=== PATIENT | female | born 1970 | race American Indian/Alaskan Native ===

== ENCOUNTER 2016-03-02 18:23 | Inpatient (IN) | payer OTHER, BC ==
--- NOTE | 2016-03-02 19:05 | Emergency Department Report ---
Chief Complaint: Chest Pain Stated Complaint: LT HAND INJURY/ELEVATED BP Time Seen by Provider: 03/02/16 18:58 - HPI History of Present Illness: Patient is a 45-year-old female who presents to ED complaining of left-sided, dull aching type pressure type pain, 7 out of 10 in intensity, nonradiating left -sided chest pain times this morning. Patient states this morning she started experiencing this chest pain that has gotten progressively worse. 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 Patient states mild throbbing in her left hand. Full range of motion and no pain with movement. Patient denies fevers/chills/nausea/shocks of breath/abdominal pain/headaches/ dizziness/any other problems. - ROS Review of Systems: As noted in HPI - Exam Vital Signs: Vital Signs 03/02/16 18:33 Temperature 98.4 F Pulse Rate 100 H Respiratory 18 Rate Blood Pressure 216/122 O2 Sat by Pulse 100 Oximetry Physical Exam: GENERAL: Alert and oriented x3, no apparent distress, Normal Gait, atraumatic. LUNGS: Symetrical with respiration, No wheezing, no rales or crackles, CTAB. HEART: S1, S2 present, regular rate and rhythm without murmur, no rubs, no gallops. ABDOMEN: No organomegaly was noted,Positive bowel sounds, soft, and non- distended. . Nontender to palpation on all Quadrants, NO CVA tenderness. EXTREMITIES/MUSCULOSKELETAL: No cyanosis, clubbing, rash, lesions or edema. Full ROM bilaterally. UE/LE Pulses 2+ bilaterally. LE and UE 5+ strength bilaterally SKIN: Warm and dry, No lesions, No ulceration or induration present. MSE screening note: Focused history and physical exam performed. Due to findings the following was ordered: ED Medical Decision Making - EKG Data EKG shows normal: sinus rhythm Rate: normal - EKG Data Interpretation: other (possible left atrial enlargement, LVH, nonspecific T- wave abnormality) - Medical Decision Making 45-year-old female who presents with chest pain. EKG completed. Labs ordered. Patient's vital signs stable. Pulse rate 100 Patient is in no respiratory or acute distress. Patient waiting to see ED physician. ED Disposition for MSE Condition: Stable
[2016-03-02 19:45] LABS: Blood Urea Nitrogen 8 mg/dL (7-17); Calcium 8.8 mg/dL (8.4-10.2); Carbon Dioxide 25 mmol/L (22-30); Glucose 156 mg/dL (65-100)
[2016-03-02 19:46] LABS: Anion Gap 18 mmol/L; Chloride 99.7 mmol/L (98-107); Potassium 3.9 mmol/L (3.6-5.0); Sodium 139 mmol/L (137-145)
[2016-03-02 19:58] LABS: Basophils % (Auto) 0.7 % (0.0-1.8); Eosinophils % (Auto) 3.2 % (0.0-4.3); Hemoglobin 11.9 gm/dl (10.1-14.3); Mean Corpuscular HGB Conc 33 % (30-34); Mean Corpuscular Hemoglobin 29 pg (28-32); Mean Corpuscular Volume 89 fl (79-97); Platelet Count 235 K/mm3 (140-440); Red Blood Count 4.06 M/mm3 (3.65-5.03); Red Cell Distribution Width 13.3 % (13.2-15.2); White Blood Count 7.4 K/mm3 (4.5-11.0)
[2016-03-02] MEDS ORDERED: CATAPRES PO ONE (21:04)
[2016-03-02] MEDS ORDERED: NITRO-BID 2% TP ONE (21:04)
[2016-03-02] MEDS ORDERED: MORPHINE IV ONE (21:04)
[2016-03-02] MEDS ORDERED: ASPIRIN PO ONE (21:04)
[2016-03-02] MEDS ORDERED: ZOFRAN IV ONE (21:04)
--- NOTE | 2016-03-02 21:48 | Emergency Department Report ---
HPI - General Chief Complaint: Chest Pain Time Seen by Provider: 03/02/16 20:33 - HPI HPI: Room 22 The patient is a 45-year-old female presenting with a chief complaint chest pain. She was originally sent to the hospital for evaluation of her left hand after he patient fell on it injury noted. The patient acknowledged her in triage that she has had substernal chest pain since this morning. Patient describes the pain as dull and sharp in nature. Patient states the pain is been intermittent and sometimes associated with shortness of breath and diaphoresis. Patient denies nausea or vomiting. Patient states she had a normal chemical stress test in 2014 but has never had a cardiac catheterization. The patient currently gives her chest pain a score of 7/10. The patient complains of pain in the left hand along the dorsum and thumb Location: [see above] Duration: [see above] Quality: [see above] Severity: 7/10 Modifying factors: Unknown Context: [see above] Mode of transportation: [not driving] ED Past Medical Hx - Past Medical History Hx Hypertension: Yes Hx Diabetes: Yes (borderline) - Surgical History Additional Surgical History: RIGHT SHOULDER SURGERY - Family History Family history: no significant - Social History Smoking Status: Never Smoker Substance Use Type: Alcohol (occasional) - Medications Home Medications: Home Medications Medication Instructions Recorded Confirmed Last Taken Type Gabapentin [Neurontin] 600 mg PO Q8H 06/05/15 03/02/16 Unknown History Lisinopril [Zestril TAB] 40 mg PO QDAY #30 tablet 06/05/15 03/02/16 Unknown Rx Aspirin [Aspirin TAB] 81 mg PO QDAY 03/02/16 03/02/16 Unknown History ED Review of Systems ROS: Stated complaint: LT HAND INJURY/ELEVATED BP Other details as noted in HPI Comment: All other systems reviewed and negative Constitutional: diaphoresis Eyes: denies: eye pain, eye discharge, vision change ENT: denies: ear pain, throat pain Respiratory: shortness of breath. denies: cough, wheezing Cardiovascular: chest pain Endocrine: no symptoms reported Gastrointestinal: denies: abdominal pain, nausea, diarrhea Genitourinary: denies: urgency, dysuria, discharge Musculoskeletal: arthralgia, myalgia. denies: back pain, joint swelling Skin: denies: rash, lesions Neurological: denies: headache, weakness, paresthesias Psychiatric: denies: anxiety, depression Hematological/Lymphatic: denies: easy bleeding, easy bruising Physical Exam - Physical Exam Vital Signs: Vital Signs 03/02/16 03/02/16 03/02/16 18:33 20:06 20:30 Temperature 98.4 F Pulse Rate 100 H 90 Respiratory 18 26 H 18 Rate Blood Pressure 216/122 Blood Pressure [Left] O2 Sat by Pulse 100 100 Oximetry 03/02/16 03/02/16 03/02/16 20:34 21:28 21:29 Temperature Pulse Rate 89 90 90 Respiratory 18 Rate Blood Pressure 204/108 204/108 Blood Pressure 204/108 [Left] O2 Sat by Pulse 100 Oximetry Physical Exam: GENERAL: The patient is well-developed well-nourished female lying on stretcher not appearing to be in acute distress. [] HEENT: Normocephalic. Atraumatic. Extraocular motions are intact. Patient has moist mucous membranes. NECK: Supple. Trachea midline CHEST/LUNGS: Clear to auscultation. There is no respiratory distress noted. HEART/CARDIOVASCULAR: Regular. There is no tachycardia. There is no gallop rub or murmur. ABDOMEN: Abdomen is soft, nontender. Patient has normal bowel sounds. There is no abdominal distention. SKIN: There is no rash. There is no edema. There is no diaphoresis. NEURO: The patient is awake, alert, and oriented. The patient is cooperative. The patient has normal speech MUSCULOSKELETAL: There is tenderness to palpation of the left anatomical snuffbox. There are no obvious deformities of the left hand visualized. There is no evidence of acute injury. ED Course Vital Signs 03/02/16 03/02/16 03/02/16 18:33 20:06 20:30 Temperature 98.4 F Pulse Rate 100 H 90 Respiratory 18 26 H 18 Rate Blood Pressure 216/122 Blood Pressure [Left] O2 Sat by Pulse 100 100 Oximetry 03/02/16 03/02/16 03/02/16 20:34 21:28 21:29 Temperature Pulse Rate 89 90 90 Respiratory 18 Rate Blood Pressure 204/108 204/108 Blood Pressure 204/108 [Left] O2 Sat by Pulse 100 Oximetry ED Medical Decision Making - Lab Data Result diagrams: 03/02/16 19:03 03/02/16 19:03 Laboratory Tests 03/02/16 03/02/16 19:03 19:03 WBC 7.4 RBC 4.06 Hgb 11.9 Hct 36.0 MCV 89 MCH 29 MCHC 33 RDW 13.3 Plt Count 235 Lymph % (Auto) 33.8 [place] % (Auto) 7.3 Eos % (Auto) 3.2 Baso % (Auto) 0.7 Lymph # 2.5 [place] # 0.5 Eos # 0.2 Baso # 0.0 Seg Neutrophils % 55.0 Seg Neutrophils # 4.1 Sodium 139 Potassium 3.9 Chloride 99.7 Carbon Dioxide 25 Anion Gap 18 BUN 8 Creatinine 0.5 L Estimated GFR > 60 BUN/Creatinine Ratio 16.00 Glucose 156 H Calcium 8.8 Troponin T < 0.010 - EKG Data -: EKG Interpreted by Me EKG shows normal: sinus rhythm Rate: normal - EKG Data When compared to previous EKG there are: previous EKG unavailable Interpretation: other (no ischemic changes seen) - Radiology Data Radiology results: image reviewed (chest x-ray, left hand x-ray) interpreted by me: Chest x-ray-no focal infiltrates, no pneumothorax Left hand x-ray-no acute fractures - Differential Diagnosis ACS, scaphoid fracture, pericarditis, GERD Critical care attestation.: If time is entered above; I have spent that time in minutes in the direct care of this critically ill patient, excluding procedure time. ED Disposition Clinical Impression: Chest pain, Left hand pain, Uncontrolled hypertension Disposition: OP ADMITTED IP TO THIS HOSP Is pt being admited?: Yes Does the pt Need Aspirin: Yes Condition: Fair Instructions: Chest Pain (ED), Hypertension (ED) Time of Disposition: 22:01 (hospitalist paged)
--- NOTE | 2016-03-02 22:24 | Admit Criteria Form ---
Admission Criteria Documentation: CHEST PAIN Clinical Indications for Admission to Inpatient Care (Place 'X' for any and all applicable criteria): Admission is indicated for chest pain and ANY ONE of the following(1)(2)(3)(4)(5 ): [ ]I. Angina with acute coronary syndrome (Also use Myocardial Infarction or Angina guideline) [ ]II. Hemodynamic instability [ ]III. Angina needing acute intervention as indicated by ALL of the following( 11)(12): [ ]a) Unstable angina is present as indicated by angina that is ANY ONE of the following: [ ]i) New onset [ ]ii) Nocturnal [ ]iii) Prolonged at rest [ ]iv) Progressive [ ]b) Angina warrants acute intervention as indicated by ANY ONE of the following: [ ]i) Recurrent angina (e.g, not responding as previously to treatment) [ ]ii) Angina at rest or with low-level activities despite initial medical therapy [ ]iii) New or presumably new ST-segment depression on ECG [ ]iv) Signs or symptoms of heart failure (eg, dyspnea, pulmonary edema) [ ]v) New or worsening mitral regurgitation [ ]vi) Hemodynamic instability [ ]vii) Dangerous arrhythmia (eg, sustained ventricular tachycardia) [ ]viii) History of percutaneous coronary intervention within 6 months [ ]ix) History of coronary artery bypass graft surgery [ ]x) KEM risk score of 2 or greater[A] [ ]xi) History of Diabetes(14) [ ]xii) High-risk cardiac ischemia findings on noninvasive testing (e.g, echocardiogram, treadmill testing, nuclear scan) [ ]xiii) Chronic renal insufficiency (ie, estimated GFR less than 60 mL/min/1.732m) [ ]xiv) Left ventricular ejection fraction less than 40% [ ]IV. Evidence of RI (eg, cardiac biomarkers positive, ST-segment elevation on ECG) also use Myocardial Infarction Criteria Form. [ ]V. Pulmonary edema [ ]. Respiratory distress [ ]VII. Chest pain indicative of serious diagnosis other than coronary artery disease (eg, aortic dissection) [ ]VIII. Contraindications and/or Inappropriate clinical situations for Observational Care in patients with Chest Pain, when ANY ONE of the following is required: [ ]a) Patient with risk factor for pulmonary embolism, acute coronary syndrome and myocardial infarction (18) [ ]b) Patient with Pulmonary embolism require an average LOS of 4.3 days, therefore emergency department observation management is inappropriate 18,23 [ ]c) Painful condition/s in the elderly, have the highest rate of recidivism after emergency department observation management (10.8%) 20,21,22 [ ]d) Elevated cardiac biomarker requires intensive and exhaustive care (19) [X ]IX. General contraindications and/or Inappropriate clinical situations for Observational Care in patients with Chest Pain, when ANY ONE of the following is required: [ ]a) Prediction of prolongation of LOS based on ANY ONE of the following may be considered as a contraindication for observational care 2, 3, 4, 5, 6, 7, 8, 9, 10, 11 [ ]i) Age > 65 yrs. [ ]ii) Patient arriving by ambulance [ ]iii) Patient with high acuity [ ]iv) Patient requiring vital sign monitoring [ ]v) Patient on IV medication [ X]b) Systolic blood pressures 180mmHg 3,12 [ ]c) Patient with altered mental status including delirium and other alteration of consciousness, (3) [ ]d) Patient whose discharge disposition will be to a penitentiary home or rehabilitation home should not be managed in Emergency Department Observation Unit. CMS rule requires 3 days hospital stay before such placement. 3,13 [ ]e) Patient with failure to thrive due to broad array of etiologies 3,16,17 [ ]f) Inability to ambulate 3,14 Extended stay beyond goal length of stay may be needed for (1)(28): [ ]a) Specific condition diagnosed after evaluation (eg, pulmonary embolism, aortic dissection) [ ]b) Unstable angina [ ]c) Continued suspicion of acute coronary syndrome with inability to complete needed cardiac evaluation (eg, patient clinically unable to undergo stress testing) [ ]d) Myocardial infarction (Contents from ANGINA and CHEST PAIN clinical indications for admission to inpatient care have been integrated in this form) The original [facility] content created by [employer] has been revised. The portions of the content which have been revised are identified through the use of italic text or in bold, and [facility] [employer] has neither reviewed nor approved the modified material. All other unmodified content is copyright [facility] [employer]. Please see references footnoted in the original [facility] edition 2016 Admission Criteria Met: Yes
[2016-03-02] MEDS ORDERED: APRESOLINE IV PRN (22:29)
--- NOTE | 2016-03-02 22:43 | History and Physical Report ---
History of Present Illness Date of examination: 03/02/16 History of present illness: 45-year-old woman with a history of hypertension, diabetes, hyperlipidemia comes emergency room for evaluation of the left hand. Hypertension states she was change in the patient in the [employer] where she works, the patient rolled onto her hand and since then she has been having increasing pain. Pain is along the base of the first digit and including the snuff box. She also complaining of chest pain, located in the left chest which she described as a dull heavy pain, intermittent in nature lasting for less than 1 minute, intensity [place], no radiation and she cannot identify exacerbating or relieving factors. Denies nausea vomiting, diaphoresis and palpitation, admits to mild shortness of breath. Patient had a stress test in 2016 which was negative. She has not taken antihypertensives in 1 month Patient denies cough, abdominal pain, hematochezia, dysuria, frequency, focal weakness, dysarthria, fever chills, polydipsia polyuria, hot or cold intolerance , easy bruisability, or rash or bleeding from mucosal membrane, rhinorrhea, epistaxis, earache, tinnitus, blurry vision, eye discharge, anxiety, depression. Other review of systems negative PAST SURGICAL HISTORY: Right shoulder SOCIAL HISTORY: Denies alcohol, tobacco, drugs FAMILY HISTORY: Hypertension Medications and Allergies Allergies Allergy/AdvReac Type Severity Reaction Status Date / Time penicillin Allergy Rash Verified 06/05/15 08:23 Home Medications Medication Instructions Recorded Confirmed Last Taken Type Gabapentin [Neurontin] 600 mg PO Q8H 06/05/15 03/02/16 Unknown History Lisinopril [Zestril TAB] 40 mg PO QDAY #30 tablet 06/05/15 03/02/16 Unknown Rx Aspirin [Aspirin TAB] 81 mg PO QDAY 03/02/16 03/02/16 Unknown History amLODIPine [Norvasc] 10 mg PO DAILY 03/02/16 03/02/16 1 Day Ago History 10 Active Meds: Active Medications Hydralazine HCl (Apresoline) 5 mg IV Q6HR PRN PRN Reason: Hypertension Exam - Physical Exam Narrative exam: Gen. appearance: Patient lying in bed, no apparent distress HEENT: Normocephalic, atraumatic, pupils equally round and reactive to light, extraocular movement intact, and no sclericterus,. No JVD or thyromegaly or nodule,neck supple, no carotid bruit ,mucous membranes moist, no exudate or erythema Heart: S1, S2, regular rate and rhythm Lungs: Clear to auscultation bilaterally, breathing comfortable Abdomen: Positive bowel sounds, nontender, nondistended, no organomegaly Extremity: No edema, cyanosis, clubbing Skin: No rash, nodules, warm, dry Neuro: Oriented 3, cranial nerves II-12 intact, speech is fluent, motor and sensory intact - Constitutional Vitals: Temp Pulse Resp BP Pulse Ox 98.4 F 90 18 204/108 100 03/02/16 18:33 03/02/16 21:29 03/02/16 20:34 03/02/16 21:29 03/02/16 20:34 Results - Labs CBC & Chem 7: 03/02/16 19:03 03/02/16 19:03 Labs: Abnormal lab results 03/02/16 Range/Units 19:03 Creatinine 0.5 L (0.7-1.2) mg/dL Glucose 156 H (65-100) mg/dL - Imaging and Cardiology EKG: image reviewed Chest x-ray: image reviewed Assessment and Plan Hypertensive urgency, malignant Chest pain, sick secondary to the above Diabetes type 2 Hyperlipidemia Admits medicine Check cardiac enzymes, start aspirin, IV morphine, consult cardiology Start IV hydralazine as needed for blood pressure control Restart outpatient medication, start DVT prophylaxis
[2016-03-02] MEDS ORDERED: NON-FORMULARY (Gabapentin [Neurontin] 600 MG) PO SCH (22:45)
[2016-03-03] MEDS ORDERED: DULCOLAX PR PRN (01:25)
[2016-03-03] MEDS ORDERED: SODIUM CHLORIDE FLUSH SYRINGE 10 ML IV PRN (01:25)
[2016-03-03] MEDS ORDERED: MILK OF MAGNESIA PO PRN (01:25)
[2016-03-03] MEDS ORDERED: TYLENOL PO PRN (01:25)
[2016-03-03] MEDS ORDERED: ZOFRAN IV PRN (01:25)
[2016-03-03] MEDS ORDERED: D50W (25GM) IV PRN (01:25)
[2016-03-03] MEDS: NEURONTIN PO SCH ×4 (02:20→21:31)
[2016-03-03 02:53] LABS: Creatine Kinase MB 1.9 ng/mL (0.0-4.0)
[2016-03-03 04:21] LABS: Basophils % (Auto) 1.1 % (0.0-1.8); Eosinophils % (Auto) 4.1 % (0.0-4.3); Hematocrit 37.3 % (30.3-42.9); Hemoglobin 12.1 gm/dl (10.1-14.3); Mean Corpuscular HGB Conc 32 % (30-34); Mean Corpuscular Hemoglobin 29 pg (28-32); Mean Corpuscular Volume 89 fl (79-97); Red Blood Count 4.18 M/mm3 (3.65-5.03); Red Cell Distribution Width 13.4 % (13.2-15.2); White Blood Count 6.4 K/mm3 (4.5-11.0)
[2016-03-03 04:44] LABS: BUN/Creatinine Ratio 16.66; Blood Urea Nitrogen 10 mg/dL (7-17); Calcium 8.5 mg/dL (8.4-10.2); Carbon Dioxide 29 mmol/L (22-30); Chloride 102.7 mmol/L (98-107); Glucose 126 mg/dL (65-100); Potassium 3.7 mmol/L (3.6-5.0); Sodium 144 mmol/L (137-145)
[2016-03-03 04:48] LABS: Anion Gap 16 mmol/L
[2016-03-03 05:36] LABS: Platelet Count 196 K/mm3 (140-440)
[2016-03-03] MEDS: NOVOLOG SUB-Q SCH ×4 (07:56→22:23)
--- NOTE | 2016-03-03 08:34 | Consultation ---
History of Present Illness Consult date: 03/03/16 Requesting physician: LACEY HANDLEY Consult reason: chest pain History of present illness: The patient is a 45 year old female with a history of hypertension, diabetes who presented for evaluation of left hand pain after a patient fell on her hand a work. She also reports intermittent substernal chest pain since yesterday. She describes the pain as "heaviness." Associated with shortness of breath and diaphoresis. No palpitations, nausea or vomiting. Troponin negative x 2. BP on presentation was 216/122. Lexiscan thallium stress test done 05/2015 was negative for ischemia. Echo done 05/2015 showed EF 65%, impaired relaxation. Of note, the patient does have reproducible anterior chest wall tenderness on exam. Past History Past Medical History: diabetes, hypertension Past Surgical History: Other (shoulder surgery, uterine polyp removal ) Social history: denies: smoking, alcohol abuse, prescription drug abuse, IV drug use, full code Family history: no significant family history Medications and Allergies Allergies Allergy/AdvReac Type Severity Reaction Status Date / Time penicillin Allergy Rash Verified 06/05/15 08:23 Home Medications Medication Instructions Recorded Confirmed Last Taken Type Gabapentin [Neurontin] 600 mg PO Q8H 06/05/15 03/02/16 Unknown History Lisinopril [Zestril TAB] 40 mg PO QDAY #30 tablet 06/05/15 03/02/16 Unknown Rx Aspirin [Aspirin TAB] 81 mg PO QDAY 03/02/16 03/02/16 Unknown History amLODIPine [Norvasc] 10 mg PO DAILY 03/02/16 03/02/16 1 Day Ago History 10 Active Meds: Active Medications Acetaminophen (Tylenol) 650 mg PO Q4H PRN PRN Reason: Pain MILD(1-3)/Fever >100.5/SCHULER Amlodipine Besylate (Norvasc) 10 mg PO DAILY MENDY Aspirin (Ecotrin) 325 mg PO QDAY MENDY Bisacodyl (Dulcolax) 10 mg IN QDAY PRN PRN Reason: Constipation unrelieved by MOM Dextrose (D50w (25gm)) 50 ml IV PRN PRN PRN Reason: Hypoglycemia Enoxaparin Sodium (Lovenox) 40 mg SUB-Q QDAY MENDY Gabapentin (Neurontin) 600 mg PO Q8HR [facility] Last Admin: 03/03/16 07:56 Dose: 600 mg Hydralazine HCl (Apresoline) 5 mg IV Q6HR PRN PRN Reason: Hypertension Influenza Virus Vaccine Quadrival (Fluarix Quad [id number](36 Mos+)) 60 mcg IM .ONCE ONE Stop: 03/03/16 12:01 Insulin Aspart (Novolog) 0 units SUB-Q ACHS MENDY PRN Reason: Protocol Last Admin: 03/03/16 07:56 Dose: Not Given Lisinopril (Zestril) 40 mg PO QDAY MENDY Magnesium Hydroxide (Milk Of Magnesia) 30 ml PO Q4H PRN PRN Reason: Constipation Morphine Sulfate (Morphine) 2 mg IV Q4H PRN PRN Reason: Pain, Moderate (4-6) Ondansetron HCl (Zofran) 4 mg IV Q8H PRN PRN Reason: N/V unrelieved by Reglan Pneumococcal Polyvalent Vaccine (Pneumovax 23) 0.5 ml IM .ONCE ONE Stop: 03/03/16 12:01 Sodium Chloride (Sodium Chloride Flush Syringe 10 Ml) 10 ml IV PRN PRN PRN Reason: LINE FLUSH Review of Systems Constitutional: no fever, no chills Ears, nose, mouth and throat: no nasal congestion, no nasal discharge, no sinus pressure Cardiovascular: chest pain, shortness of breath, no palpitations Respiratory: shortness of breath, no cough, no congestion, no wheezing Gastrointestinal: no abdominal pain, no nausea, no vomiting, no diarrhea Genitourinary Female: no dysuria, no urgency Musculoskeletal: no neck stiffness, no neck pain Integumentary: no rash, no pruritis Neurological: no numbness, no tingling, no headaches Endocrine: no cold intolerance, no heat intolerance Hematologic/Lymphatic: no easy bruising, no easy bleeding Allergic/Immunologic: no urticaria, no wheezing Physical Examination Vital Signs Temp Pulse Resp BP Pulse Ox 98.4 F 100 H 18 216/122 100 03/02/16 18:33 03/02/16 18:33 03/02/16 18:33 03/02/16 18:33 03/02/16 18:33 General appearance: no acute distress, obese HEENT: Positive: Normocephaly, Mucus Membranes Moist Neck: Positive: neck supple, trachea midline Cardiac: Positive: Reg Rate and Rhythm, S1/S2 Lungs: Positive: Decreased Breath Sounds Neuro: Positive: Grossly Intact Abdomen: Positive: Soft, Tender, Distended Skin: Positive: Clear. Negative: Rash Extremities: Present: normal. Absent: edema Results 03/03/16 04:03 03/03/16 04:03 Cardiac Enzymes 03/03/16 03/03/16 03/03/16 Range/Units 02:03 03:35 04:03 WBC 6.4 (4.5-11.0) K/mm3 RBC 4.18 (3.65-5.03) M/mm3 Hgb 12.1 (10.1-14.3) gm/dl Hct 37.3 (30.3-42.9) % MCV 89 (79-97) fl MCH 29 (28-32) pg MCHC 32 (30-34) % RDW 13.4 (13.2-15.2) % Plt Count 196 (140-440) K/mm3 Lymph % (Auto) 39.0 H (13.4-35.0) % [place] % (Auto) 7.8 H (0.0-7.3) % Eos % (Auto) 4.1 (0.0-4.3) % Baso % (Auto) 1.1 (0.0-1.8) % Lymph # 2.5 (1.2-5.4) K/mm3 [place] # 0.5 (0.0-0.8) K/mm3 Eos # 0.3 (0.0-0.4) K/mm3 Baso # 0.1 (0.0-0.1) K/mm3 Seg Neutrophils % 48.0 (40.0-70.0) % Seg Neutrophils # 3.1 (1.8-7.7) K/mm3 Sodium (137-145) mmol/L Potassium (3.6-5.0) mmol/L Chloride (98-107) mmol/L Carbon Dioxide (22-30) mmol/L Anion Gap mmol/L BUN (7-17) mg/dL Creatinine (0.7-1.2) mg/dL Estimated GFR ml/min BUN/Creatinine Ratio % Glucose (65-100) mg/dL POC Glucose (70-105) Calcium (8.4-10.2) mg/dL Total Creatine Kinase 186 H (30-135) units/L CK-MB (CK-2) 1.9 (0.0-4.0) ng/mL CK-MB (CK-2) Rel Index 1.0 (0-4) Troponin T < 0.010 (0.00-0.029) ng/mL 03/03/16 03/03/16 Range/Units 04:03 07:33 WBC (4.5-11.0) K/mm3 RBC (3.65-5.03) M/mm3 Hgb (10.1-14.3) gm/dl Hct (30.3-42.9) % MCV (79-97) fl MCH (28-32) pg MCHC (30-34) % RDW (13.2-15.2) % Plt Count (140-440) K/mm3 Lymph % (Auto) (13.4-35.0) % [place] % (Auto) (0.0-7.3) % Eos % (Auto) (0.0-4.3) % Baso % (Auto) (0.0-1.8) % Lymph # (1.2-5.4) K/mm3 [place] # (0.0-0.8) K/mm3 Eos # (0.0-0.4) K/mm3 Baso # (0.0-0.1) K/mm3 Seg Neutrophils % (40.0-70.0) % Seg Neutrophils # (1.8-7.7) K/mm3 Sodium 144 (137-145) mmol/L Potassium 3.7 (3.6-5.0) mmol/L Chloride 102.7 (98-107) mmol/L Carbon Dioxide 29 (22-30) mmol/L Anion Gap 16 mmol/L BUN 10 (7-17) mg/dL Creatinine 0.6 L (0.7-1.2) mg/dL Estimated GFR > 60 ml/min BUN/Creatinine Ratio 16.66 % Glucose 126 H (65-100) mg/dL POC Glucose 133 H (70-105) Calcium 8.5 (8.4-10.2) mg/dL Total Creatine Kinase (30-135) units/L CK-MB (CK-2) (0.0-4.0) ng/mL CK-MB (CK-2) Rel Index (0-4) Troponin T (0.00-0.029) ng/mL CBC 03/03/16 Range/Units 04:03 WBC 6.4 (4.5-11.0) K/mm3 RBC 4.18 (3.65-5.03) M/mm3 Hgb 12.1 (10.1-14.3) gm/dl Hct 37.3 (30.3-42.9) % Plt Count 196 (140-440) K/mm3 Lymph # 2.5 (1.2-5.4) K/mm3 [place] # 0.5 (0.0-0.8) K/mm3 Eos # 0.3 (0.0-0.4) K/mm3 Baso # 0.1 (0.0-0.1) K/mm3 Comprehensive Metabolic Panel 03/03/16 Range/Units 04:03 Sodium 144 (137-145) mmol/L Potassium 3.7 (3.6-5.0) mmol/L Chloride 102.7 (98-107) mmol/L Carbon Dioxide 29 (22-30) mmol/L BUN 10 (7-17) mg/dL Creatinine 0.6 L (0.7-1.2) mg/dL Glucose 126 H (65-100) mg/dL Calcium 8.5 (8.4-10.2) mg/dL - Imaging and Cardiology Echo: report reviewed (05/2015: EF 65%, impaired relaxation ) EKG: image reviewed EKG interpretations - Telemetry EKG Rhythm: Sinus Rhythm - EKG Sinus rhythms and dysrhythmias: sinus rhythm Chamber hypertrophy or enlargement: left atrial enlargement, left ventricular hypertro Repolarization changes or abnormalities: nonspecific abnormality, ST segment, and/or T wave Assessment and Plan Atypical chest pain, likely costochondritis troponin negative x 2 stress MPI 05/2015: no ischemia Echo 05/2015: EF 65%, impaired relaxation recommend trial of NSAIDS Accelerated hypertension-->resolved continue norvasc/lisinopril Left hand pain Diabetes Obesity Given atypical chest pain, negative enzymes and recent negative stress test, recommend trial of NSAIDS and aggressive BP control. The patient has been seen in conjunction with Dr. Orozco who agrees with the assessment and plan of care. Thank you Dr. Handley for allowing us to participate in the care of this patient.
--- NOTE | 2016-03-03 08:34 | XRay Report ---
AP CHEST: HISTORY: Chest pain. FINDINGS: Heart size and pulmonary venous structures appear borderline on today's exam. These findings are slightly increased since 06/05/15. The lungs are clear. No evidence for pneumonia, CHF or pneumothorax. IMPRESSION: Borderline heart size and pulmonary vascularity. No CHF.
[2016-03-03 09:09] LABS: Creatine Kinase MB 1.6 ng/mL (0.0-4.0)
[2016-03-03] MEDS ORDERED: ZESTRIL ONE ×2 (10:06→17:24)
[2016-03-03] MEDS: ZESTRIL PO SCH ×2 (10:11→17:29)
[2016-03-03] MEDS: LOVENOX SUB-Q SCH (10:11)
[2016-03-03] MEDS: ECOTRIN PO SCH (10:11)
[2016-03-03] MEDS: NORVASC PO SCH ×2 (10:11→17:29)
--- NOTE | 2016-03-03 10:31 | XRay Report ---
LEFT HAND 2 VIEWS: HISTORY: Pain after patient fell on hand. FINDINGS: No fracture or dislocation. No periosteal reaction or soft tissue calcification. IMPRESSION: No evidence of acute fracture.
--- NOTE | 2016-03-03 11:23 | Progress Note ---
[id number] year. Aspirin Left hand pain. 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 Analgesics. Occupational therapy eval. Hypertensive urgency. Her blood pressure was 216/122. She was given clonidine by mouth blood pressure improved Diabetes mellitus type 2. Gastric glucose before every meal and at bedtime. Full CODE STATUS History Interval history: chest pain, left hand pain Hospitalist Physical - Physical exam Narrative exam: Gen appearance : Not in acute distress, obese, HEENT: Normocephalic atraumatic Neck: supple, no JVD. Lungs: clear to auscultation bilaterally, no crackles no wheezes Heart: S1 and S2 regular, no murmurs, rubs or gallop Abdomen: soft, nontender, nondistended normal bowel sounds Extremities: mild tender left hand. no edema no clubbing or cyanosis Neuro : Awake alert oriented 3, no focal signs - Constitutional Vitals: Temp Pulse Resp BP Pulse Ox 98.4 F 64 16 125/83 94 03/02/16 18:33 03/03/16 10:00 03/03/16 10:00 03/03/16 10:11 03/03/16 10:00 Results - Labs CBC & Chem 7: 03/03/16 04:03 03/03/16 04:03 Labs: Laboratory Last Values WBC 6.4 K/mm3 (4.5-11.0) 03/03/16 04:03 RBC 4.18 M/mm3 (3.65-5.03) 03/03/16 04:03 Hgb 12.1 gm/dl (10.1-14.3) 03/03/16 04:03 Hct 37.3 % (30.3-42.9) 03/03/16 04:03 MCV 89 fl (79-97) 03/03/16 04:03 MCH 29 pg (28-32) 03/03/16 04:03 MCHC 32 % (30-34) 03/03/16 04:03 RDW 13.4 % (13.2-15.2) 03/03/16 04:03 Plt Count 196 K/mm3 (140-440) 03/03/16 04:03 Lymph % (Auto) 39.0 % (13.4-35.0) H 03/03/16 04:03 [place] % (Auto) 7.8 % (0.0-7.3) H 03/03/16 04:03 Eos % (Auto) 4.1 % (0.0-4.3) 03/03/16 04:03 Baso % (Auto) 1.1 % (0.0-1.8) 03/03/16 04:03 Lymph # 2.5 K/mm3 (1.2-5.4) 03/03/16 04:03 [place] # 0.5 K/mm3 (0.0-0.8) 03/03/16 04:03 Eos # 0.3 K/mm3 (0.0-0.4) 03/03/16 04:03 Baso # 0.1 K/mm3 (0.0-0.1) 03/03/16 04:03 Seg Neutrophils % 48.0 % (40.0-70.0) 03/03/16 04:03 Seg Neutrophils # 3.1 K/mm3 (1.8-7.7) 03/03/16 04:03 Sodium 144 mmol/L (137-145) 03/03/16 04:03 Potassium 3.7 mmol/L (3.6-5.0) 03/03/16 04:03 Chloride 102.7 mmol/L (98-107) 03/03/16 04:03 Carbon Dioxide 29 mmol/L (22-30) 03/03/16 04:03 Anion Gap 16 mmol/L 03/03/16 04:03 BUN 10 mg/dL (7-17) 03/03/16 04:03 Creatinine 0.6 mg/dL (0.7-1.2) L 03/03/16 04:03 Estimated GFR > 60 ml/min 03/03/16 04:03 BUN/Creatinine Ratio 16.66 % 03/03/16 04:03 Glucose 126 mg/dL (65-100) H 03/03/16 04:03 POC Glucose 133 (70-105) H 03/03/16 07:33 Calcium 8.5 mg/dL (8.4-10.2) 03/03/16 04:03 Total Creatine Kinase 157 units/L (30-135) H 03/03/16 08:30 CK-MB (CK-2) 1.6 ng/mL (0.0-4.0) 03/03/16 08:30 CK-MB (CK-2) Rel Index 1.0 (0-4) 03/03/16 08:30 Troponin T < 0.010 ng/mL (0.00-0.029) 03/03/16 10:33
[2016-03-03] MEDS ORDERED: PNEUMOVAX 23 IM ONE (12:00)
[2016-03-03] MEDS ORDERED: FLUARIX QUAD 2016-2017(36 MOS+) IM ONE (12:00)
[2016-03-03] MEDS ORDERED: NACL ONE (12:16)
[2016-03-03] MEDS: MOTRIN PO PRN (16:55)
[2016-03-03] MEDS: MORPHINE IV PRN ×2 (17:21→21:31)
[2016-03-04] MEDS: NEURONTIN PO SCH (05:22)
[2016-03-04] MEDS: MORPHINE IV PRN ×2 (05:22→09:37)
[2016-03-04] MEDS: MOTRIN PO PRN (08:43)
[2016-03-04] MEDS: NOVOLOG SUB-Q SCH (08:45)
[2016-03-04] MEDS: ZESTRIL PO SCH (09:36)
[2016-03-04] MEDS: ECOTRIN PO SCH (09:36)
[2016-03-04] MEDS: NORVASC PO SCH (09:36)
[2016-03-04] MEDS: LOVENOX SUB-Q SCH (09:37)
[2016-03-04 11:04] VITALS: BP 147/76
--- NOTE | 2016-03-04 12:16 | Progress Note ---
Assessment and Plan Atypical chest pain, likely costochondritis troponin negative x 2 stress MPI 05/2015: no ischemia Echo 05/2015: EF 65%, impaired relaxation continue NSAIDS Accelerated hypertension-->resolved continue norvasc/lisinopril Abdominal pain Left hand pain Diabetes Obesity Stable cardiac status. Continue current management. The patient has been seen in conjunction with Dr. Orozco who agrees with the assessment and plan of care. Subjective Date of service: 03/04/16 Principal diagnosis: atypical chest pain Interval history: The patient c/o pain "all over" and difficulty swallowing. Sinus rhythm on the monitor. Objective Last Vital Signs Temp 98.0 F 03/04/16 11:03 Pulse 78 03/04/16 11:03 Resp 18 03/04/16 11:03 BP 147/76 03/04/16 11:03 Pulse Ox 97 03/04/16 11:03 - Physical Examination General: No Apparent Distress HEENT: Positive: Normocephaly, Mucus Membranes Moist Neck: Positive: neck supple, trachea midline Cardiac: Positive: Reg Rate and Rhythm, S1/S2 Lungs: Positive: clear to auscultation Neuro: Positive: Grossly Intact Abdomen: Positive: Soft, Tender, Distended Skin: Positive: Clear. Negative: Rash Musculoskeletal: other (reproducible anterior chest wall tenderness) Extremities: Present: normal. Absent: edema - Imaging and Cardiology EKG: image reviewed Echo: report reviewed (05/2015: EF 65%, impaired relaxation ) - Telemetry EKG Rhythm: Sinus Rhythm - EKG Sinus rhythms and dysrhythmias: sinus rhythm Chamber hypertrophy or enlargement: left atrial enlargement, left ventricular hypertro Repolarization changes or abnormalities: nonspecific abnormality, ST segment, and/or T wave
--- NOTE | 2016-03-04 12:24 | Discharge Summary ---
Providers - Providers Date of Admission: 03/03/16 01:25 Date of discharge: 03/04/16 Attending physician: ALPHONSO MATTHEWS 03/03/16 12:15 Occupational Therapy Evaluate and Treat [CONS] Routine Comment: Reason For Exam: pain left hand Primary care physician: THERAPIST ASST Hospitalization Condition: Fair Hospital course: Patient is 45-year-old with history of hypertension, diabetes. She works at a retirement. She presents with left hand pain and chest pain. She states that she was turning a patient and the patient rolled over her left hand. She complains of severe pain in the left hand. Pain is 7 out of 10 and sharpl. She also complains of chest pain 8 out of 10, dull and has been going on for about a week. Initial cardiac enzymes are normal. Initial blood pressure was very high at 212/166 she was given hydralazine IV to control the blood pressure.She was given aspirin and admitted for further management. X-ray of the hand was unremarkable,did not show any fracture. Cardiology was consulted for chest pain. Cardiology stated that chest pain is noncardiac, since she had a normal stress test May 2015, chest pain is likely musculoskeletal. She was subsequently discharged home on 03/04/2016 to follow as an outpatient. Total time spent on discharge 35 minutes Disposition: DISCHARGED TO HOME OR SELFCARE - Discharge Diagnoses (1) Musculoskeletal chest pain Status: Acute (2) Hypertensive urgency Status: Acute (3) Left hand pain Status: Acute (4) Diabetes mellitus type 2 in obese Status: Chronic Core Measure Documentation - Palliative Care Palliative Care/ Comfort Measures: Not Applicable - Core Measures Any of the following diagnoses?: none Exam - Constitutional Vitals: Temp Pulse Resp BP Pulse Ox 98.0 F 78 18 147/76 97 03/04/16 11:03 03/04/16 11:03 03/04/16 11:03 03/04/16 11:03 03/04/16 11:03 Plan Activity: advance as tolerated Diet: low fat, low cholesterol, low salt, diabetic Additional Instructions: 1.Follow up with PCP in 3-5 days. 2.Outpatient occupational therapy Follow up with: PRIMARY CARE, [Primary Care Provider] - 3-5 Days Forms: Work/School Release Form Prescriptions: Famotidine [Pepcid] 20 mg PO BID #60 tablet Ibuprofen [Motrin 600 MG tab] 600 mg PO Q8H PRN #30 tablet PRN Reason: Pain, Mild (1-3)
== END 2016-03-04 15:00 | disposition home or self-care (01) | DRG 305 ==
LOC: ED 18:23 → 4A 03-03 01:25
PROVIDERS: ADMIT Internal Medicine; ATTEND Internal Medicine
DX: I16.0 Hypertensive urgency (principal); R07.89 Other chest pain; E11.8 Type 2 diabetes mellitus with unspecified complications; E78.5 Hyperlipidemia, unspecified; E66.9 Obesity, unspecified; M79.642 Pain in left hand; R10.9 Unspecified abdominal pain; I10 Essential (primary) hypertension; Z98.890 Other specified postprocedural states; Z79.899 Other long term (current) drug therapy; Z82.49 Family history of ischemic heart disease and other diseases of the circulatory system; Z88.0 Allergy status to penicillin; Z68.32 Body mass index [BMI] 32.0-32.9, adult
CPT/HCPCS: 36415; 71010; 80048; 82550; 82553; 82962; 84484; 85025; 90686; 90732; 93005; 93010; 96372; 96374; J1650; J2270; J2405